=== PATIENT | male | born 2005 | race Two or more races ===

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

== ENCOUNTER 2024-03-13 06:13 | Emergency (ER) | payer MEDICAID ==
[~2024-03-13] VITALS: Ht 177.8 cm; Wt 95.3 kg
[2024-03-13] MEDS ORDERED: IBUPROFEN 600 MG TABLET ONE (07:02)
[2024-03-13] MEDS: IBUPROFEN 600 MG TABLET PO ONE (07:02)
[2024-03-13 07:53] VITALS: BP 112/66; TEMP 98.6; O2SAT 98
== END 2024-03-13 07:50 | disposition home or self-care (01) ==
LOC: ER 06:19
DX: S90.31XA Contusion of right foot, initial encounter (principal); F32.A Depression, unspecified; F12.90 Cannabis use, unspecified, uncomplicated; F17.200 Nicotine dependence, unspecified, uncomplicated; Y08.89XA Assault by other specified means, initial encounter; Y93.89 Activity, other specified; Y92.89 Other specified places as the place of occurrence of the external cause; Y99.8 Other external cause status
CPT/HCPCS: 73610-TC; 73630-TC